=== PATIENT | male | born 1970 | race Hispanic/Latino ===

== ENCOUNTER 2020-08-06 14:40 | Emergency (ER) | payer OTHER ==
[~2020-08-06] VITALS: Ht 188 cm; Wt 113.4 kg
--- NOTE | 2020-08-06 14:40 | NUR ---
1431 ARRIVAL PT ARRIVED TO ED AMBULATORY WITH C/O GETTING HANDS CAUGHT ON CONVEYER BELT. PT HAS RIGHT HAND THUMB, FIRST AND SECOND FINGER AMPUTATED, LEFT HAND THUMB HAS MULTIPLE LACERATIONS AND POSSIBLE HAND FX. PT HAS RIGHT HAND WRAPPED IN TOWEL AND SHIRT. 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 BEDSIDE MONITORS APPLIED. VITAL SIGNS STABLE. 20G IV PLACED TO LEFT AC.
[2020-08-06] MEDS ORDERED: MORPHINE SULFATE IV STA (14:44)
[2020-08-06] MEDS ORDERED: ZOFRAN IV STA (14:44)
[2020-08-06] MEDS ORDERED: VERSED IV STA (14:44)
[2020-08-06 14:45] VITALS: BP 145/86
[2020-08-06] MEDS ORDERED: WATER ONE (14:47)
--- NOTE | 2020-08-06 14:51 | NUR ---
RIGHT HAND BLOCK DR SAMPSON PERFORMED WRIST BLOCK TO RIGHT HAND FOR PAIN CONTROL.
--- NOTE | 2020-08-06 14:53 | NUR ---
[facility] TRANSFER CENTER DR SAMPSON ON THE PHONE WITH [facility] TRANSFER LINE.
--- NOTE | 2020-08-06 14:55 | NUR ---
WOUNDS BILATERAL HAND WOUNDS CLEANED AND DRESSED.
--- NOTE | 2020-08-06 14:58 | NUR ---
[facility] ACCEPTANCE DR MEJIA AND DR AGUAYO ACCEPTED AT [facility]. NICOLE GARCIA.
--- NOTE | 2020-08-06 14:59 | NUR ---
LIFESTAR STATUS CHECK ON LIFESTAR. SPOKE WITH
[2020-08-06 15:02] LABS: MEAN CORP HGB 31.4 pg (26-34); RED CELL DISTRIBUTION WIDTH 13.3 % (11.5-14.5)
--- NOTE | 2020-08-06 15:03 | NUR ---
DR LACIE MEDELLIN RETURNED CALL AND STATED TO CONTINUE WITH TRANSFER TO [facility].
--- NOTE | 2020-08-06 15:03 | NUR ---
FACESHEET FACESHEET FAXED TO HEALTH SYSTEM.
[2020-08-06] MEDS ORDERED: ADACEL VIAL IM ONE ×2 (15:05→15:30)
[2020-08-06] MEDS ORDERED: NS 100ML 100 ML IV ONE (15:10)
[2020-08-06] MEDS ORDERED: ANCEF ONE (15:10)
[2020-08-06] MEDS ORDERED: ANCEF IV STA (15:11)
[2020-08-06 15:15] VITALS: BP 156/97
--- NOTE | 2020-08-06 15:17 | DIREP ---
PROCEDURE:XRAY HAND MIN 3 VW-LT COMPARISON:[facility], CR, XRAY HAND MIN 3 VW-RT, 08/06/2020, 02:21 PM. INDICATIONS:trauma to hand FINDINGS: BONES:Fracture involving the distal aspect of the proximal phalanx of the thumb. This is displaced 1 shaft width. There is fracture involving the terminal phalanx, mildly displaced. JOINTS:Normal. SOFT TISSUES:Normal. OTHER:No additional findings. CONCLUSION:Fractures involving the distal aspect of the proximal phalanx of the thumb, and terminal phalanx. Dictated by: Glenn Park MD on 08/06/2020 at 03:13 PM
[2020-08-06 15:18] LABS: CALCIUM 9.2 mg/dL (8.4-10.5); CARBON DIOXIDE 19.5 mmol/L (20.0-32)
--- NOTE | 2020-08-06 15:18 | ER.PDOC ---
General Chief Complaint: Trauma Stated Complaint: juancho HAND INJURY Time seen by MD: 15:11 Source: patient Exam Limitations: no limitations History of Present Illness Occurred: just prior to arrival Where: work Severity: moderate Context: laceration Location of Injury: (R) fingers, (L) fingers Past Medical History Medical History: no pertinent history Surgical History: no surgical history Social History Alcohol Use: occassionally Drug Use: none Reviewed Nursing Reviewed: Vital Signs, Abn. Noted Review of Systems All Other Systems: Reviewed and Negative Physical Exam General Appearance: Anxious, Moderate Distress Hand: see diagram, tenderness, limited ROM, deformity Wrist: nml inspection, non-tender, nml ROM 1 - las, deformity 2 - deformty, lac 1 - deformity, lac Neuro: digital nerve deficit Vascular: no vascular compromise Tendons: injury seen Forearm/Elbow/Arm: uninjured above wrist Skin: warm/dry Head/ENT: nml inspection, pharynx nml Neck/Back: nml inspection, non-tender Resp/CVS: no resp distress, lungs clear, heart sounds nml, reg. rate & rhythm Abdomen: non-tender, no organomegaly Results/Orders Results/Orders Orders - KIRK SAMPSON MD Xr Hand Lt (08/06/20 14:42) Xr Hand Rt (08/06/20 14:42) Morphine Sulfate (Morphine Sulfate) (08/06/20 14:44) Ondansetron Hcl/Pf (Zofran) (08/06/20 14:44) Midazolam Hcl (Versed) (08/06/20 14:44) Cbc W/O Diff (08/06/20 14:47) Comprehensive Metabolic Panel (08/06/20 14:47) PT (08/06/20 14:47) Water For Irrigation,Sterile (Water) (08/06/20 14:47) Diph,Pertuss(Acell),Tet Vac/Pf (Adacel V (08/06/20 15:05) Cefazolin Sodium (Ancef) (08/06/20 15:11) 0.9 % Sodium Chloride (Ns 100ml) (08/06/20 15:10) Cefazolin Sodium (Ancef) (08/06/20 15:10) Creatine Kinase (08/06/20 15:15) Creatine Kinase Mb (08/06/20 15:15) Urinalysis (08/06/20 15:15) Troponin I (08/06/20 15:15) Ekg-Routine (08/06/20 15:15) Drug Scrn Med W Confirmation (08/06/20 15:15) Alcohol(Ml) (08/06/20 15:15) Diph,Pertuss(Acell),Tet Vac/Pf (Adacel V (08/06/20 15:30) Vital Signs Date Time Temp Pulse Resp B/P (MAP) Pulse Ox O2 Delivery O2 Flow Rate FiO2 08/06/20 15:15 98.9 111 20 156/97 (116) 99 Room Air 08/06/20 14:52 22 08/06/20 14:45 98.9 133 22 145/86 (105) 99 Room Air 08/06/20 14:45 98.9 133 22 08/06/20 14:45 98.9 133 22 99 Administered Medications Medications (Trade) Dose Ordered Sig/Daisy Route PRN Reason Start Time Stop Time Status Last Admin Dose Admin Cefazolin Sodium (Ancef) 1 gm STAT STAT IV 08/06/20 15:11 08/06/20 15:12 DC 08/06/20 15:15 1 GM Midazolam HCl (Versed) 5 mg STAT STAT IV 08/06/20 14:44 08/06/20 14:47 DC 08/06/20 15:10 5 MG Morphine Sulfate (Morphine Sulfate) 10 mg STAT STAT IV 08/06/20 14:44 08/06/20 14:47 DC 08/06/20 15:10 10 MG Ondansetron HCl (Zofran) 4 mg STAT STAT IV 08/06/20 14:44 08/06/20 14:47 DC 08/06/20 15:10 4 MG Laboratory Tests Test 08/06/20 14:55 White Blood Count 10.6 10^3/uL (4.5-11.0) Red Blood Count 4.65 10^6/uL (4.50-5.90) Hemoglobin 14.6 g/dL (13.9-16.3) Hematocrit 43.2 % (37.0-53.0) Mean Corpuscular Volume 92.9 fL (78-100) Mean Corpuscular Hemoglobin 31.4 pg (26-34) Mean Corpuscular Hemoglobin Concent 33.8 g/dL (33-36.5) Red Cell Distribution Width 13.3 % (11.5-14.5) Platelet Count 266 10^3/uL (150-400) Mean Platelet Volume 9.7 fL (7.8-11.0) Sodium Level 140 mmol/L (132-145) Potassium Level 3.3 mmol/L (3.6-5.2) L Chloride Level 104.0 mmol/L (96-109) Carbon Dioxide Level 19.5 mmol/L (20.0-32) L Anion Gap 19.8 Blood Urea Nitrogen 15 mg/dL (7-18) Creatinine 1.44 mg/dL (0.59-1.40) H Estimated GFR () 62.8 (>/=60) Est GFR (CKD-EPI)(Non-Afr Lao) 51.9 (>/=60) BUN/Creatinine Ratio 10.0 Glucose Level 140 mg/dL (70-110) H Calcium Level 9.2 mg/dL (8.4-10.5) Total Bilirubin 1.0 mg/dL (0.2-1.0) Aspartate Amino Transferase (AST) 31 U/L (0-35) Alanine Aminotransferase (ALT) 28 U/L (12-78) Alkaline Phosphatase 82 U/L (50-136) Total Protein 7.8 g/dL (6.4-8.2) Albumin 3.9 g/dL (3.4-5.0) Globulin 3.9 Albumin/Globulin Ratio 1.000 Consult/PCP Time Consult/PCP Called: 15:22 Consult/PCP: HAND SURGEON, 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
--- NOTE | 2020-08-06 15:19 | DIREP ---
PROCEDURE:XRAY HAND MIN 3 VW-RT COMPARISON:None. INDICATIONS:traumatic amputation of fingers FINDINGS: BONES:Amputations, multiple, terminal phalanx of the thumb, proximal aspect of middle phalanx index finger, and terminal phalanx 3rd digit. There is an oblique fracture involving the distal aspect of middle phalanx 3rd digit. JOINTS:Normal. SOFT TISSUES:Soft tissue injuries, in keeping with amputation OTHER:No additional findings. CONCLUSION:Multiple amputations, terminal phalanx of the thumb, and 3rd digit, proximal aspect of middle phalanx index finger. Dictated by: Glenn Park MD on 08/06/2020 at 03:17 PM
--- NOTE | 2020-08-06 15:22 | NUR ---
LIFESTAR LIFESTAR ETA 22 MINUTES.
--- NOTE | 2020-08-06 15:35 | NUR ---
REPORT REPORT CALLED TO [facility].
[2020-08-06 15:45] VITALS: BP 135/95
--- NOTE | 2020-08-06 16:02 | NUR ---
LIFESTAR LIFESTAR IN FACILITY FOR TRANSPORT.
== END 2020-08-06 16:04 | disposition short-term general hospital (02) ==
LOC: ER 14:40
DX: S69.92XA Unspecified injury of left wrist, hand and finger(s), initial encounter (principal); R79.1 Abnormal coagulation profile; S68.012A Complete traumatic metacarpophalangeal amputation of left thumb, initial encounter; X58.XXXA Exposure to other specified factors, initial encounter; Y93.89 Activity, other specified; Y92.89 Other specified places as the place of occurrence of the external cause; Y99.0 Civilian activity done for income or pay
CPT/HCPCS: 36415; 64450; 73130 ×2; 80053; 82550; 82553; 84484; 85027; 85610; 90471; 90715; 96374; 96375; 99285; J0690; J7050; 80320